=== PATIENT | female | born 1985 | race Caucasian/White ===

== ENCOUNTER 2018-09-22 10:31 | Emergency (ER) | payer MEDICAID, OTHER ==
[~2018-09-22] VITALS: Ht 182.9 cm; Wt 89.4 kg
[~2018-09-22 10:31] MED LIST: FAMO40TA73 PO
[2018-09-22] MEDS ORDERED: ACET-3067 PO (11:03)
[2018-09-22] MEDS ORDERED: acetaminophen w/codeine (30MG) #3 tablet PO ONE (11:05)
[2018-09-22 12:05] VITALS: BP 125/68
== END 2018-09-22 12:12 | disposition home or self-care (01) ==
LOC: ER 10:32
DX: S20.219A Contusion of unspecified front wall of thorax, initial encounter (principal); R51 Headache; Z88.0 Allergy status to penicillin; Z88.8 Allergy status to other drugs, medicaments and biological substances; Z79.899 Other long term (current) drug therapy; V89.2XXA Person injured in unspecified motor-vehicle accident, traffic, initial encounter; Y93.89 Activity, other specified; Y92.488 Other paved roadways as the place of occurrence of the external cause; Y99.8 Other external cause status
CPT/HCPCS: 93005; 99283

== ENCOUNTER 2019-08-12 21:25 | Emergency (ER) | payer MEDICAID, OTHER ==
[~2019-08-12] VITALS: Ht 182.9 cm; Wt 64.9 kg
[2019-08-12 21:26] VITALS: BP 173/122
[2019-08-12] MEDS ORDERED: HYDROcodone/acetaminophen 5mg/325mg tablet PO ONE (22:30)
[2019-08-12] MEDS ORDERED: HYDR-3965 PO (22:35)
== END 2019-08-12 22:48 | disposition home or self-care (01) ==
LOC: ER 21:26
DX: R07.89 Other chest pain (principal); F10.99 Alcohol use, unspecified with unspecified alcohol-induced disorder; Z88.0 Allergy status to penicillin; Z72.89 Other problems related to lifestyle; Z88.1 Allergy status to other antibiotic agents; Z88.8 Allergy status to other drugs, medicaments and biological substances; Z79.899 Other long term (current) drug therapy; Y90.9 Presence of alcohol in blood, level not specified
CPT/HCPCS: 71046; 99283